=== PATIENT | male | born 1970 | race Caucasian/White ===

== ENCOUNTER → 2019-05-03 | Outpatient (CLI) | payer OTHER ==
--- NOTE | 2019-05-03 15:06 | 2DMMODE ---
[place] [address] 2 D/M-MODE ECHOCARDIOGRAM Name: CLEMENTINEMeraryJOHN Room: [facility]#: [id number] Admission: 05/03/19 Attend Phys: Carlos Sawyer Discharge: Date of : 72 Date of Service: 05/03/19 1506 Report #: [id number] THIS REPORT FOR: //name// APPROVED REPORT Study performed: 05/03/2019 07:53:03 EXAM: Comprehensive 2D, Doppler, and color-flow Echocardiogram Patient Location: Out-Patient BSA: 2.01 HR: 49 bpm BP: 102/60 mmHg Other Information Study Quality: Good Indications Palpitations 2D Dimensions IVSd: 9.10 (7-11mm) LVOT Diam: 20.02 (18-24mm) LVDd: 48.66 mm PWd: 8.74 (7-11mm) Ascending Ao: 25.75 (22-36mm) LVDs: 30.33 (25-40mm) Aortic Root: 25.80 mm Volumes Left Atrial Volume (Systole) LA ESV Index: 22.00 mL/m2 Aortic Valve AoV Peak Jules.: 1.34 m/s AO Peak Gr.: 7.16 mmHg LVOT Max P.20 mmHg AO Mean Gr.: 3.94 mmHg LVOT Mean P.33 mmHg LVOT Max V: 1.14 m/s AO V2 VTI: 30.40 cm LVOT Mean V: 0.69 m/s ROSI (VTI): 2.69 cm2 LVOT V1 VTI: 26.01 cm Mitral Valve E/A Ratio: 2.35 MV Decel. Time: 232.06 ms MV E Max Jules.: 0.69 m/s MV PHT: 67.30 ms MVA (PHT): 3.27 [place] [address] 2 D/M-MODE ECHOCARDIOGRAM Name: JOHN MALDONADO Room: [facility]#: [id number] Admission: 05/03/19 Attend Phys: Carlos Sawyer Discharge: Date of : 72 Date of Service: 05/03/19 1506 Report #: [id number] TDI E/Lateral E': 4.06 E/Medial E': 4.93 Medial E' Jules.: 0.14 m/s Lateral E' Jules.: 0.17 m/s Pulmonary Valve PV Peak Jules.: 0.91 m/s PV Peak Gr.: 3.32 mmHg Tricuspid Valve RAP Estimate: 5.00 mmHg TR Peak Gr.: 18.83 mmHg RVSP: 23.83 mmHg PA Pressure: 23.83 mmHg Left Ventricle The left ventricle is normal size. There is normal LV segmental wall motion. There is normal left ventricular wall thickness. Left ventricular systolic function is normal. LVEF is 55-60%. The left ventricular diastolic function is normal. Right Ventricle The right ventricle is normal size. The right ventricular systolic function is normal. Atria The left atrium size is normal. The right atrium size is normal. Aortic Valve The aortic valve is normal in structure. No aortic regurgitation is present. There is no aortic valvular stenosis. Mitral Valve The mitral valve is normal in structure. There is no mitral valve regurgitation noted. No evidence of mitral valve stenosis. Tricuspid Valve The tricuspid valve is normal in structure. Trace to mild tricuspid regurgitation. No pulmonary hypertension. Pulmonic Valve The pulmonary valve is normal in structure. There is no pulmonic valvular regurgitation. Great Vessels The aortic root is normal in size. IV[place] [address] 2 D/M-MODE ECHOCARDIOGRAM Name: JOHN MALDONADO [id number] Admission: 05/03/19 Attend Phys: Carlos Sawyer Discharge: Date of : 72 Date of Service: 05/03/19 1506 Report #: [id number] collapses >50% with inspiration. Pericardium There is no pericardial effusion. <Conclusion> The left ventricle is normal size. There is normal left ventricular wall thickness. Left ventricular systolic function is normal. LVEF is 55-60%. The left ventricular diastolic function is normal. There is normal LV segmental wall motion. Trace to mild tricuspid regurgitation. No pulmonary hypertension. IVC is normal in size and collapses >50% with inspiration. <ELECTRONICALLY SIGNED> By: Patricio Subramanian MD, FACC 05/03/19 1506 1506 1506 Patricio Subramanian MD, FACC /INF
== END ==
LOC: M.CRD 07:40
DX: I07.1 Rheumatic tricuspid insufficiency (principal)